=== PATIENT | male | born 1965 | race Caucasian/White ===

== ENCOUNTER → 2022-10-08 14:41 | Outpatient (CLI) | payer OTHER, SELFPAY ==
--- NOTE | 2022-10-08 | DI.CT.S_ITS ---
PROCEDURE: CT CHEST WO CON INDICATIONS: Solitary pulmonary nodule TECHNIQUE: Noncontrast 5 mm thick sections acquired from the pulmonary apices to the posterior costophrenic angles. 1 mm lung window, 5 mm thick coronal and sagittal and 7 mm axial MIP reformats were then acquired. For radiation dose reduction, the following was used: automated exposure control, adjustment of mA and/or kV according to patient size. COMPARISON: Outside Facility, , CT THORAX W/O CONTRAST, 03/04/2021, 8:10. FINDINGS: Image quality: Excellent. Lungs and pleura: Pulmonary nodules as are described below: 1. Right lower lobe, 4 mm pulmonary nodule, current image 137/3, unchanged. 2. 3 mm right lower lobe pulmonary nodule, unchanged, current image 223/3. 3. Unchanged 3 mm pulmonary nodule, anterior left upper lobe, current image 134/3. No acute air space opacities. No pleural effusions or pneumothorax. Central and peripheral airways are patent and normal in caliber. Mediastinum: Heart size is normal. No pericardial effusion. Moderate coronary artery calcifications. No mediastinal adenopathy by size criteria. Thoracic aorta and central pulmonary arteries are normal in size. Esophagus is normal in caliber. No hiatal hernia. Bones and chest wall: No suspicious bony lesions. No vertebral body compression fractures. No axillary or supraclavicular adenopathy by size criteria. Thyroid gland is unremarkable as visualized . Abdomen: Visualized upper abdominal solid organs and bowel loops appear normal in the absence of contrast. IMPRESSION: Multiple small pulmonary nodules are stable, consistent with benign pulmonary nodules. Dictated by: Julien Dasilva M.D. on 10/12/2022 at 17:57 Approved by: Julien Dasilva M.D. on 10/12/2022 at 18:02
== END ==
PROVIDERS: Referring Provider Nurse Practitioner; Visit Provider Nurse Practitioner
DX: R91.8 Other nonspecific abnormal finding of lung field (principal); I25.10 Atherosclerotic heart disease of native coronary artery without angina pectoris
CPT/HCPCS: 71250

== ENCOUNTER → 2023-09-19 14:31 | Outpatient (CLI) | payer OTHER, SELFPAY ==
[2023-09-19 15:22] LABS: Add Manual Diff / Slide Review NO; Basophils Absolute Auto 100 /uL (0-100); Basophils Percent Auto 0.8 % (0-2); Eosinophils Absolute Auto 500 /uL (0-450); Eosinophils Percent Auto 5.3 % (2-4); Hematocrit 43.2 % (41-53); Hemoglobin 14.6 g/dL (13.5-17.5); Hemoglobin A1C% w Est Avg Glu 6.6 % (4.0-6.0); Lymphocytes Absolute Auto 2000 /uL (1100-4500); Lymphocytes Percent Auto 20.2 % (25-40); Mean Corpuscular HGB Conc 33.9 % (30-36); Mean Corpuscular Hemoglobin 32.2 PG (26-34); Monocytes Absolute Auto 1000 /uL (0-900); Neutrophils Absolute Auto 6200 /uL (1500-7000); Neutrophils Percent Auto 63.7 % (50-75); Platelet Count 259 X10^3/uL (150-400); Red Blood Cell Count 4.55 X10^6/uL (4.5-5.9); Red Cell Distribution Width 13.7 % (11.6-14.8); White Blood Cell Count 9.7 X10^3/uL (4.5-11.0)
[2023-09-19 15:38] LABS: Albumin 4.3 g/dL (3.5-5.0); BUN Creatinine Ratio 24.4 (6-22); Blood Urea Nitrogen 21 mg/dL (9-20); Calcium 8.6 mg/dL (8.4-10.2); Carbon Dioxide 34 mmol/L (22-32); Chloride 104 mmol/L (98-107); Estimated Glomerular Filt Rate > 60 mL/min (>60); Glucose 89 mg/dL (80-110); HEMOLYSIS < 15 (0-50); Potassium 4.2 mmol/L (3.4-5.1); Sodium 141 mmol/L (137-145)
[2023-09-19 15:46] LABS: Prealbumin 20.9 mg/dL (17.6-36.0)
[2023-09-19 15:56] LABS: Vitamin D 25 Hydroxy (D3) 34.2 ng/mL (30.0-100.0)
== END ==
LOC: LAB 14:32
PROVIDERS: Referring Provider Orthopaedic Surgery Adult Reconstructive Orthopaedic Surgery; Visit Provider Orthopaedic Surgery Adult Reconstructive Orthopaedic Surgery
DX: Z01.818 Encounter for other preprocedural examination (principal); Z01.812 Encounter for preprocedural laboratory examination; R77.0 Abnormality of albumin; E55.9 Vitamin D deficiency, unspecified; R73.9 Hyperglycemia, unspecified
CPT/HCPCS: 36415; 80048; 82040; 82306; 83036; 84134; 85025; 93005

== ENCOUNTER 2024-01-06 06:02 | Day surgery (SDC) | payer OTHER, SELFPAY ==
[2023-12-21 14:16] VITALS: BMI 33.9
[2024-01-06] VITALS (7 sets, daily range): BP systolic 90–141; BP diastolic 52–93; PULSE 60–67; RESP 10–16; TEMP 36.2–37; O2SAT 88–98; BMI 33.9
--- NOTE | 2024-01-06 | DI.RAD.S_ITS ---
PROCEDURE: XR HIP W PEL IF DONE LT 2V INDICATIONS: LT ANTERIOR HIP TECHNIQUE: 3 views of the hip were acquired. COMPARISON: None. Findings and impression: Intraoperative images were obtained during left hip arthroplasty. Hardware appears to be in expected position. Please see operative note for full details. Dictated by: Marcelo Castillo M.D. on 01/06/2024 at 13:27 Approved by: Marcelo Castillo M.D. on 01/06/2024 at 13:28
--- NOTE | 2024-01-06 06:00 | DI.RAD.S_ITS ---
PROCEDURE: XR HIP W PEL IF DONE LT 2V INDICATIONS: RANDY TECHNIQUE: AP pelvis and lateral view of the hip acquired. COMPARISON: [facility], CR, XR HIP W PEL IF DONE LT 2V, 01/06/2024, 9:00. FINDINGS: Bones: Patient is status post left hip arthroplasty, with hardware components in expected positions. The hip joint appears congruent. The visualized bony structures appear intact. Soft tissues: Overlying postoperative changes are noted. No suspicious soft tissue densities. IMPRESSION: Expected post-operative appearance of a hip arthroplasty. Dictated by: Dominic Pavon M.D. on 01/08/2024 at 10:36 Approved by: Dominic Pavon M.D. on 01/08/2024 at 10:36
[2024-01-06] MEDS: LACTATED RINGERS 1,000 ML 42 ML IV ×2 (07:20→09:35)
[2024-01-06] MEDS: MELOXICAM 7.5 MG TABLET PO (07:20)
[2024-01-06] MEDS: ACETAMINOPHEN 325 MG TABLET 975 MG PO (07:20)
--- NOTE | 2024-01-06 07:45 | PM.PREOP ---
Pre-operative Note Interval Note History & Physical reviewed/Exam performed by Physician: Yes Changes to H&P: No
[2024-01-06] MEDS: CEFAZOLIN 2 GM/100 ML PREMIX 100 ML IV (08:12)
[2024-01-06] MEDS: TRANEXAMIC ACID 1,000 MG VIAL 1000 MG INJ ×2 (08:23→09:27)
--- NOTE | 2024-01-06 08:28 | SUR.OPER ---
Supine on padded [place] table with bilateral legs secured in padded positioning boots and suspended in positioning spars, operative leg in traction per surgeon. Head on one pillow. Arms secured on padded armboard <90 degrees abduction. Padded perineal post in place per surgeon.
[2024-01-06] MEDS: ROPIVACAINE/EPI/CLONIDINE/KET 50 ML SYRINGE INJ (08:42)
--- NOTE | 2024-01-06 09:30 | P.OP_ITS ---
Operative Date/Time/Diagnoses Date of procedure: 01/06/24 Pre-op diagnosis: Left hip avascular necrosis and osteoarthritis Post-op diagnosis: same Procedure & Clinicians Procedure: Left total hip arthroplasty (15744) Same procedure as scheduled: Yes Surgeon: Jesus Choudhary Cogeneration Technician: Suzie Maynard Anesthesia Type: Spinal, Sedation and Local Operative Notes Estimated Blood Loss (mL): 200 Procedure in detail: Left Uncemented Direct Anterior Depuy Total Hip Arthroplasty: Implants: * [place] Gription size 56 cup? * Actis femoral stem size 7 high offset? * 36 mm +1.5 ceramic femoral head? Procedure Summary: This 58-year-old male had avascular necrosis of his left hip. This was reflected in the bone quality of the femoral head when it was extracted. Preoperatively he had a relatively varus orientation to his anatomy and equal leg lengths. I therefore intended to use a high offset stem and a neutral head which in this system is a +1.5 head. I initially trialed with this configuration and found that he was slightly long but that my broach could likely sink deeper so I think it an additional 3 mm. I retrialed with that configuration with the final stem and a trial head and had good stability so I implanted the +1.5 head. Procedure in Detail: This patient was seen preoperatively and evaluated for hip pain which was refractory to numerous nonoperative treatment modalities. Their hip pain correlated with radiographic changes demonstrating significant degeneration in the hip joint. The risks and benefits of continued nonoperative management versus operative management were discussed at length and all of the patient?s questions were answered. Additional educational materials providing further details beyond our discussion in clinic were provided via a publicly available patient education video which included the incidence of medical complications associated with total hip arthroplasty, reasons for revision following total hip arthroplasty, and patient satisfaction rates following total hip arthroplasty. That video can be accessed at [email or web address] . With this understanding of the risks inherent to the procedure, the patient elected to move forward with operative management. Following preoperative optimization, the patient was scheduled for surgery. The patient was met in the preoperative holding area the day of the procedure and all questions were answered. The patient?s nares were swabbed with betadine in order to decolonize them from MRSA. Informed consent was signed and the left limb was marked with indelible ink.? The patient was brought back to the operating room where anesthesia was induced. The patient was transferred to the [place] table and all bony prominences were padded. The operative site was prepped and draped in the usual sterile fashion. Prior to incision, tranexamic acid and cefazolin were administered. Operative templating images were displayed demonstrating the anticipated implant sizes and correct operative extremity. A timeout procedure was performed verifying the patient?s identity, medical comorbidities, allergies, relevant medications, anesthesia type and the surgical plan. All present were in agreement. The assistance of a physician assurance assistant was required for positioning, room setup, soft tissue retraction and wound closure. Without this assistance, the procedure would have been significantly more challenging and time consuming.?? A direct anterior approach to the hip was utilized. This was performed with a longitudinal incision through a Heuter interval. The incision was planned 2 cm distal and 2 cm lateral to the ASIS extending towards the lateral patella, in line with the muscle body of the TFL. Following incision, the subcutaneous tissue was dissected while taking care to avoid injury to the lateral femoral cutaneous nerve. The fascia overlying the TFL was identified by dissecting off the overlying fat and identifying perforating vessels to the TFL. The TFL fascia was incised and dissected away from the medial border of the TFL. A cobra retractor was placed over the superior femoral neck between the abductors and the hip capsule and used to reflect the TFL laterally. A Hardy self-retainer was then placed in the distal aspect of the wound between the TFL and the rectus femoris. This was tensioned to open up the direct anterior interval and the lateral circumflex vessels were identified and coagulated using electrocautery. The floor of the TFL fascia was incised, exposing the pericapsular fat overlying the hip capsule. A second cobra retractor was placed on the inferior femoral neck. A double-bent soft tissue retractor was placed on the anterior wall of the acetabulum and used to tension the reflected head of rectus femoris, which was then released in order to limit soft tissue tension. A capsulotomy was made in the midline of the anterior hip capsule in line with the femoral neck ending at the vastus tubercle. The double-bent retractor was removed in order to limit the amount of time that a soft tissue retractor remained on the anterior wall and protect the femoral nerve. Tag stitches were placed in the superior and inferior leaflets of the hip capsule. An Ralf soft tissue retractor was introduced over the tag stitches and tensioned in the interval between the rectus femoris and the TFL in order to retract and protect those muscles. The cobra retractors were replaced intracapsularly, with one over the superior neck in the pocket created by the base of the greater trochanter and the other on the femoral head. The capsulotomy was extended laterally to the base of the greater trochanter and medially to the lesser trochanter. This required externally rotating the hip. Once the lesser trochanter had been identified, a neck cut was planned according to measurements from preoperative templating. A ruler was cut at the length measured between the superior aspect of the lesser trochanter and the collar of the prosthesis. This line was extended towards the inferior aspect of the lateral cobra retractor to plan a cut which would leave minimal residual femoral neck laterally. The neck was cut at 60 degrees of external rotation along that line. A second cut was performed to remove a large napkin ring and facilitate head extraction. The napkin ring cut and femoral head were removed.?? A broad anterior wall retractor was placed between the labrum and the anterior capsule so that the anterior capsule would prevent capturing and pinching the femoral nerve anteriorly. An additional retractor was placed on the posterior wall. External rotation and traction were applied through the [place] table so that the cut surface of the femoral neck would not restrict access to the acetabulum. The labrum was excised sharply and the pulvinar was excised with electrocautery to limit bleeding from branches of the obturator artery. Acetabular reamers were selected based on preoperative templating and measurements of the excised femoral head. These were introduced into the acetabulum. Fluoroscopy was utilized to replicate a standing AP pelvis radiograph by centering over the pelvis, rotating until there was appropriate symmetry between the obturator foramen, and introducing caudal tilt to match the position of the pubic symphysis relative to the sacrococcygeal junction according to the patient?s anatomy. Fluoroscopy was utilized to ensure appropriate reaming depth. Once satisfied with the reaming depth corresponding to the preoperative template and the pinch fit between the columns, an appropriate sized acetabular cup was selected which would provide 1 mm of press-fit. This cup was introduced and manipulated until appropriate abduction and anteversion angles were obtained with careful attention to appropriate abduction and anteversion angles as evaluated by the position of the cup relative to the anterior and posterior palomares of the acetabulum and the AP fluoroscopy which recreated the patient?s standing radiograph. The cup was impacted into place. Peripheral osteophytes were removed. The acetabular liner was then placed with care to ensure locking of the locking mechanism.? Attention was then turned to the femur. All retractors were removed, traction was released, a retractor was placed in the interval between the hip capsule and the gluteus minimus, and the hip was externally rotated to 90 degrees. Traction was applied through the [place] table to tension the lateral capsule and this was released using electrocautery. Traction was released and a [place] hook was placed posteriorly around the proximal femur at the level of the vastus ridge. The table height was lowered in order to restrict the tension on the anterior struc tures during hip hyperextension to limit the risk of femoral nerve palsy. With traction off and the hip at 90 degrees of external rotation, the hip was hyperextended and adducted while manually elevating the femur away from the acetabulum with the [place] hook to ensure it would not be caught behind the greater trochanter. An asymmetric retractor was placed over the calcar and a broad double-pronged retractor was placed over the greater trochanter. The tag stitch capturing the lateral leaflet of the capsule was moved to the medial side, leaving the conjoined and piriformis tendons isolated in the face of the greater trochanter. The hip was externally rotated and elevated. A release of the conjoined tendon was not necessary in order to obtain adequate exposure for broaching. The canal was opened with an opening broach and a rasp was used to remove cancellous bone. A rongeur was used to remove the residual lateral bone at the base of the greater trochanter to avoid placing the stem in varus. The femur was then broached to the appropriate sized stem yielding good rotational fit and fill of the canal as well as appropriate version of the stem trial. Neck and head trials were placed, all retractors were removed and the hip was returned to neutral abduction and extension. I then reduced the hip. Initial trialing was performed with a size 7 broach, a high offset neck and a +1.5 head. I initially manually externally rotated the hip and found no instability. I then locked the hip in 45 degrees of external rotation and dropped it to the floor with traction off which demonstrated no instability. An AP pelvis fluoroscopic image matching the preoperative standing radiograph with both lesser trochanters visible and both hips in 40 degrees of external rotation demonstrated that the operative site was slightly long. AP and lateral hip fluoroscopic images were obtained to evaluate the broach size which demonstrated good canal fill although it appeared the broach could sink slightly deeper. The hip was dislocated and I returned to the broaching position. Based on my evaluation during initial trialing I planned to sink the broach slightly and trial again to ensure that the decreased length had not resulted in instability. I was able to sink the broach an additional 3 mm. I placed the definitive stem and a trial head and repeated the trialing process. I now found that the leg length was more equal between the 2 sides and that there was still no instability with either maximum external rotation past 120? or with a 45 degree drop test. I therefore returned to the broaching position. The trunnion was cleaned and dried. I placed a ceramic head onto the trunnion and impacted it into place on the [place] taper.?? All retractors were removed and the hip was reduced. A dilute mixture of betadine and peroxide was used to bathe the soft tissues during final fluoroscopic assessment. Appropriate component positioning was confirmed on an AP pelvis radiograph with the operative and nonoperative legs in 40 degrees of external rotation, evaluating leg length and offset. Appropriate stem fill was evaluated on AP and lateral hip radiographs. No fractures were identified on th saray radiographs. There was no hip instability with maximum (120) external rotation as well as a 45 degree drop test. The hip was copiously irrigated with pulse lavage. The capsule was closed with a bsorbable interrupted suture. The TFL fascia was closed with barbed suture while carefully protecting the lateral femoral cutaneous nerve from entrapment. A mixture of Ropivacaine, Epinephrine, Clonidine and Toradol was infiltrated throughout the soft tissues. The skin was closed with 2-0 and 3-0 sutures. Surgical glue was applied and a soft dressing was placed.??The sponge, instrument and needle counts were reported as being correct at the end of the case.??No obvious complications occurred. The patient was transferred from the [place] table back to a stretcher. The patient emerged from anesthesia without difficulty and was taken to the PACU in a stable condition.? Plan for aftercare: * Anterior hip precautions * Weightbearing as tolerated * Aspirin 81 twice per day for DVT prophylaxis * Anticipate discharge home today. Patient is strongly desirous of a same-day discharge so we will try to use a rapid mobilization protocol and discharge him today * Change into normal clothes upon arrival on the hospital floor * Mobilize in the halls as much as is logistically possible. If physical therapy is unavailable for mobilization, then patient should mobilize with nursing staff * Multimodal pain regimen with no IV opioids ordered * Apply ice machine to operative hip. Ensure that sufficient ice is in the chamber for the pad to remain cold * Follow up at [facility] in 2 weeks * Detailed postoperative instructions available at [email or web address]
[2024-01-06] MEDS: OXYCODONE IR 5 MG TABLET PO (10:47)
--- NOTE | 2024-01-06 11:32 | PC.NURSE ---
Pt to room 203 via bed from PACU. Pt is awake alert and oriented. Denies pain, nausea, or shortnes of breath. Pt to [facility] and denies numbness. Pt oriented to bed controls, tv controls, call light, and room. Pt denies needs at this time but agrees to call for assistance as needed and to not get out of bed without help.
--- NOTE | 2024-01-06 12:50 | PT.IIE ---
Current Diagnoses Unilateral primary osteoarthritis, left hip (01/06/24) Surgery Performed Operation Date: 01/06/24 07:45 Actual Procedures p Total Hip Arthroplasty/Anterior Approach(Left) - Jesus Choudhary MD Surgical History (Last Updated 12/21/23 @ 14:53 by Wendy Westbrook, RN) H/O cosmetic surgery Hx of appendectomy Hx of cardiac cath Medical History (Last Updated 12/21/23 @ 15:25 by Wendy Westbrook, RN) CKD (chronic kidney disease) Fatty liver GERD (gastroesophageal reflux disease) History of GI bleed HLD (hyperlipidemia) HTN (hypertension) Myocardial infarction (~2010) Osteoarthritis Physical Therapy Inpatient Evaluation/Re-Eval M1 PT/OT-IP Prior Functional Status Start: 01/06/24 13:32 Freq: NEEDED Status: Active Protocol: Document 01/06/24 12:50 AB (Rec: 01/06/24 13:44 AB [id number]) Medical Review Prior Functional Status Medical History Reviewed Yes Communication able to make needs known Mobility and Gait pt stated that he was independent with all mobilities and ambulation without AD but occasionally uses a walking stick to walk depending on hip pain Social History Household Members none Living Arrangements RV Number of Floors (Floors) Two Floors Number of Stairs To Enter/Railing? has 4 steps L rail ascending to enter the house has 1 step L rail to get up to main living aread Home Environment Standard Height Toilet,Walk in Shower Home Equipment Front Wheel Walker,Hand Held Shower,Grab Bars In Shower Additional Social History Comment pt's sister will stay with him overnight and afterwards, has neighbors/friends to assist when needed M2 PT-IP Current Condition Start: 01/06/24 13:32 Freq: NEEDED Status: Active Protocol: Document 01/06/24 12:50 AB (Rec: 01/06/24 13:44 AB [id number]) Physical Therapy Current Condition Current Condition Evaluation Date 01/06/24 Treatment Diagnosis s/p L RANDY anterior; difficulty in walking Onset Date 01/06/24 M3 PT-IP Subjective Start: 01/06/24 13:32 Freq: NEEDED Status: Active Protocol: Document 01/06/24 12:50 AB (Rec: 01/06/24 13:44 AB [id number]) Subjective Physical Therapy Visit Type Type Initial Evaluation Visit Start Time 12:50 Visit Stop Time 13:30 Number of METAL FITTERS AND MACHINISTS Visits 0 Physical Therapy Visit Comments Patient Comments agreeable to do PT Therapy Pain Assessment Pain When Pain Assessed At Rest Pain Present Pain Present Pain Reported Location Left Hip Intensity 2 Scale Used Numeric (0 - 10) Pain Management Techniques Distraction,Modification of Treatment,Re-positioning, Timing of Activity with Medications M4 PT-IP Mobility and Gait Start: 01/06/24 13:32 Freq: NEEDED Status: Active Protocol: Document 01/06/24 12:50 AB (Rec: 01/06/24 13:44 AB [id number]) PT-Bed Mobility Assessment Supine to Sit Supine to Sit Independent Sit to Supine Sit to Supine Independent PT-Transfer Assessment Sit to and From Stand Sit to and from Stand Standby Assistance,1 Person Assistance,Use of Upper Extremities Equipment Transfer Assistive Device Gait Belt,Front Wheeled Walker Orthotic/Prosthetic Devices or Brace: No Transfers Transfer Destination Bed,Chair Transfer Technique ambulated Transfer Ability Level of Assist Standby Assistance,Contact Guard Assistance Comments Mobility Comments pt sitting on the chair and agreeable to do PT. pt wants to go home. obtained PLOF and home set from pt. post-op folder provided and reviewed contents. educated pt regarding L hip anterior precautions. pt able to recall precautions. BP checked: 105/71. pt completed sit to stand from chair SBA and ambulated towards EOB using FWW CGA. cued pt for LLE steadiness and quads activation to decrease anatalgic gait and slight knee buckling. pt completed sit<> supine mod I. pt ambulated from bed to chair using FWW SBA to CGA. pt agreed to do stairs. educated pt on stair climbing. sit to stand from chair SBA and ambulated in the hallway towards the stairs using FWW SBA to CGA. cued for hip precautions. pt completed up/ down steps holding on to L rail with B hands CGA and also completed up/down platform step using FWW CGA. repeated x 2 sets. informed pt regarding FWW placement and to inform friend to get it set up when he goes home. pt understood. pt ambulated back to his room using FWW SBA and occasional cues for precautions. sat back on chair. call light next to pt. pt without further concerns. BP checked: 112/68 Gait Assessment Gait Gait Assistance Required: Standby Assistance,Contact Guard Assist Distance (Feet) 125 Able to Maintain Weight Bearing Status Yes During Gait Assistive Devices Assistive Device Gait Belt,Front Wheeled Walker Orthotic/Prosthetic Devices or Brace: No Gait Deviations General Gait Pattern Antalgic,Decreased Feet Clearance Factors Limiting Gait Function Factors Limiting Gait Function Decreased Activity Tolerance, Decreased Strength,Limited Range of Motion,Pain,Poor Balance,Poor Safety Awareness Stair Climbing Assessment Evaluation Level of Assist On Stairs Contact Guard Assistance Devices Stair Climbing Assistive Devices Front Wheel Walker,Left Railing Technique/Endurance Stair Climbing Direction Ascend and Descend Stair Climbing Technique Step to Step Number of Steps Climbed 3 Query Text: Stair Climbing Set # Repetitions (reps) 1 Comments Stair Climbing Comments pls refer to mobility section for details PT-Balance Assessment Sitting Balance and Reactions Static Sitting Balance Ability Normal Dynamic Sitting Balance Ability Normal Standing Balance and Reactions Static Standing Balance Ability Good Dynamic Standing Balance Ability Fair Device Used FWW M5 PT-IP Objective Assessments Start: 01/06/24 13:32 Freq: NEEDED Status: Active Protocol: Document 01/06/24 12:50 AB (Rec: 01/06/24 13:44 AB [id number]) Orientation Orientation/Cognition Level of Alertness Alert Orientation Name,Place,Situation Language Function Ability No Deficits Noted Safety Awareness Understands Safety Issues Memory Description No Deficits Noted Gross Range of Motion Lower Extremity ROM Assessment Within Functional Limits Strength Lower Extremity Strength Assessment Within Functional Limits Coordination Assessment Gross Coordination Gross Coordination WNL Sensation Assessment Sensation Gross Sensation WNL Muscle Tone Muscle Tone WNL Yes M6 PT-IP Treatment Start: 01/06/24 13:32 Freq: NEEDED Status: Active Protocol: Document 01/06/24 12:50 AB (Rec: 01/06/24 13:44 AB [id number]) Physical Therapy Treatment Education Education Provided Precautions,Weight Bearing Status,Post-Op Packet,Safety M7 PT-IP Assessment and Plan Start: 01/06/24 13:32 Freq: NEEDED Status: Active Protocol: Document 01/06/24 12:50 AB (Rec: 01/06/24 13:44 AB [id number]) PT Summary Assessment and Plan Potential Rehabilitation Potential Good Status of Condition at Evaluation Stable Summary Impairments Pain,ROM,Strength,Balance, Coordination,Sensation,Tone, Cognition,Bed Mobility, Transfers,Gait,Activity Tolerance Assessment Summary pt is a 58 y/o M s/p L RANDY anterior approach POD 0. pt has L hip anterior precautions and is WBAT. pt requiring SBA to CGA with mobility using FWW. pt plans to go home with sister to assist for tonight and afterwards, has friends who can assist when needed. pt has outpt PT set up. pt may go home when medically stable. Goals Transfer Goal Independent,Front Wheeled Walker Gait Goal Independent,Front Wheel Walker Gait Distance 300 Other Goals up/down 4 steps L rail mod I up/down 1 platform step mod I Days to Meet Goals 5 Frequency of Treatment Frequency Of Treatment Twice a Day Treatment Plan Physical Therapy Treatment Plan Bed Mobility Training,Transfer Training,Gait Training, Therapeutic Exercise,Balance Retraining,Post Op Education, Discharge Planning,Hot or Cold Pack,Neuromuscular Re-ed, Coordination Retraining,Manual Therapy Precautions Anterior Hip Precautions No Hip Extension,No Hip External Rotation Weight Bearing Status Weight Bearing Status Weight Bear as Tolerated Allowed Weight Bearing Amount (enter % LLE WBAT or #) (%) Recommendations To Nursing Amount of Assist Needed 1 Person Assist Discharge Recommendations PT Discharge Recommendations Home with Assistance Transportation Needs at Discharge Private Vehicle
--- NOTE | 2024-01-06 12:53 | PC.NURSE ---
Pt is dressed and IV has been removed. Pt is awaiting PT session. Went over d/c instructions with Pt-discussed d/c meds, time of last dose, reviewed stroke education, s/s of infection, anterior hip precautions, narcotic safety, drink plenty of fluids to prevent constipation or dehydration, and follow up appointment. Pt denied further questions and will be taken out via w/c by DIRECTOR OF SCIENTIFIC RESEARCH to POV with friend and all belongings once he is cleared by PT.
== END 2024-01-06 14:18 | disposition home or self-care (01) ==
LOC: OR 06:04 → AC 06:05
PROVIDERS: Referring Provider Orthopaedic Surgery Adult Reconstructive Orthopaedic Surgery; Visit Provider Orthopaedic Surgery Adult Reconstructive Orthopaedic Surgery
PROC: (CPT 27130; principal; 2024-01-06 07:45)
DX: M16.12 Unilateral primary osteoarthritis, left hip (principal); M25.752 Osteophyte, left hip
CPT/HCPCS: 27130; 73502; 76000; 97161; 97530; C1776; J0690; J1100; J2250; J2405; J2704; J3010